=== PATIENT | female | born 1975 | race Caucasian/White ===

== ENCOUNTER 2022-02-15 12:08 | Emergency (ER) | payer MEDICAID ==
[~2022-02-15] VITALS: Ht 165.1 cm; Wt 65.8 kg
[2022-02-15 12:18] VITALS: BP 129/87
[2022-02-15] MEDS ORDERED: METOCLOPRAMIDE 10 MG/2 ML INJ VIAL IVP ONE (13:00)
[2022-02-15] MEDS ORDERED: diphenhydrAMINE 50 MG/ML VIAL IVP ONE (13:00)
[2022-02-15] MEDS ORDERED: KETOROLAC 30 MG/ML VIAL IVP ONE (13:00)
--- NOTE | 2022-02-15 13:00 | NUR ---
GREGORIO BROUGHT IN FROM TRIAGE. WITH COMPLAINTS OF HEADACHE X 6 DAYS. DENIES VISION CHANGES, UNSTEADY GAIT. DENIES NAUSE/VOMITING. EYES ARE PERRLA, LUNG SOUNDS CLEAR, AIRWAY PATENT. NO S/S OF ACUTE DISTRESS. WILL CONTINUE TO MONITOR.
[2022-02-15 13:58] LABS: BASOPHILS # (AUTO) 0.1 K/uL (0.00-0.22); BASOPHILS % (AUTO) 0.7 % (0.0-2.0); EOSINOPHILS # (AUTO) 0.1 K/uL (0-0.4); EOSINOPHILS % (AUTO) 1.3 % (0.0-4.0); HEMATOCRIT 41.2 % (36-48); HEMOGLOBIN 13.6 g/dL (12.0-16.0); LYMPHOCYTES % (AUTO) 32.8 % (20.5-51.1); MEAN CORPUSCULAR HEMOGLOBIN 29 pg (27-31); MEAN CORPUSCULAR HGB CONC 33 g/dL (33-37); MEAN CORPUSCULAR VOLUME 86.5 fL (80-94); MONOCYTES # (AUTO) 0.7 K/uL (0.8-1.0); MONOCYTES % (AUTO) 7.6 % (1.7-9.3); NEUTROPHILS # (AUTO) 5.3 K/uL (1.8-7.7); NEUTROPHILS % (AUTO) 57.6 % (42.2-75.2); PLATELET COUNT (AUTO) 231 K/uL (140-450); RED BLOOD CELL COUNT(AUTO) 4.76 MIL/uL (4.20-5.40); RED CELL DISTRIBUTION WIDTH 13.9 % (11.6-13.7); WHITE BLOOD COUNT (AUTO) 9.2 K/uL (4.8-10.8)
[2022-02-15 14:01] LABS: ANION GAP 9.8 (8-16); CARBON DIOXIDE 29.9 mmol/L (21-32); CREATININE 0.9 mg/dL (0.6-1.3); POTASSIUM 3.7 mmol/L (3.5-5.1)
--- NOTE | 2022-02-15 14:38 | NUR ---
PT REPORTS MILD RELIEF AFTER MEDICATIONS, HEADACHE NOW 11/29. NORBERTO AGUILLON MADE AWARE
[2022-02-15] MEDS ORDERED: ONDA-188 SL (14:42)
[2022-02-15] MEDS ORDERED: IBUP-2218 PO (14:42)
[2022-02-15 15:01] VITALS: BP 118/69
--- NOTE | 2022-02-15 15:02 | NUR ---
PATIENT LEFT ED WITH NO INCIDENT. IV DISCONTINUED, IV CANNULA IS INTACT. PATIENT VERBALIZED UNDERSTANING OF HEALTH TEACHINGS
== END 2022-02-15 15:02 | disposition home or self-care (01) ==
LOC: MED 12:08
DX: R51.9 Headache, unspecified (principal); Z20.822 Contact with and (suspected) exposure to COVID-19; M54.2 Cervicalgia; R11.0 Nausea; E78.5 Hyperlipidemia, unspecified
CPT/HCPCS: 36415; 80048; 81002; 81025; 85025; 85651; 87426; 87804; 96374; 96375; 99284; J1200; J1885; J2765

== ENCOUNTER 2022-03-07 12:41 | Emergency (ER) | payer MEDICAID ==
[~2022-03-07] VITALS: Ht 156.2 cm; Wt 75.4 kg
[~2022-03-07 12:41] MED LIST: IBUP-2218 PO; ONDA-188 SL
[2022-03-07 13:00] VITALS: BP 124/79
[2022-03-07] MEDS ORDERED: KETOROLAC 30 MG/ML VIAL IM ONE (13:35)
--- NOTE | 2022-03-07 14:50 | NUR ---
46YO FEMALE PT C/O PRESSURED 10/10 HEADACHE [id number]. REPORTS EPISODES OF DIZZINESS NAUSEA AND BLURRY VISION. DENIES RELIEF AFTER TAKING IBUPROFEN. DENIES INJURY, CHEST PAIN, SOB, FEVER OR CHILLS. PT AAOX4, RESPIRATIONS EVEN AND UNLABORED. CITIZEN OF [place] SPEAKING HX:DENIES NKA
--- NOTE | 2022-03-07 14:53 | NUR ---
PT TAKEN TO CT VIA WHEELCHAIR
[2022-03-07 14:57] VITALS: BP 139/90
--- NOTE | 2022-03-07 15:03 | NUR ---
PT BROUGHT BACK VIA WHEELCHAIR
[2022-03-07] MEDS ORDERED: NAPR-1704 PO (16:35)
--- NOTE | 2022-03-07 16:44 | NUR ---
Patient discharged with v/s stable. Written and verbal after care instructions FOR TENSION HEADACHE given and explained. Patient alert, oriented and verbalized understanding of instructions. Ambulatory with steady gait. All questions addressed prior to discharge. ID band removed. Patient advised to follow up with PMD. Rx of NAPROXEN given. Opportunity to ask questions provided and answered.
--- NOTE | 2022-03-07 16:49 | NUR ---
The patient's care was reviewed and supervised by ED Agency Nurse 8, RN, RN.
== END 2022-03-07 16:44 | disposition home or self-care (01) ==
LOC: MED 12:41
DX: G44.209 Tension-type headache, unspecified, not intractable (principal); H53.8 Other visual disturbances; R11.0 Nausea; Z79.899 Other long term (current) drug therapy
CPT/HCPCS: 70450; 81002; 81025; 96372; 99284; J1885